=== PATIENT | male | born 1940 | race Caucasian/White ===

== ENCOUNTER 2016-11-09 08:15 | Outpatient (RCR) ==
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
--- NOTE | 2016-10-13 09:35 | RS.OPPTDN ---
Subjective Date of Note: 10/13/16 Visit #: 2 Date of Evaluation: 10/12/16 Payer Source: MEDICARE Treatment Diagnosis: Neck pain and weakness Current Subjective/complaints:: Patient reports feeling fairly good this morning. Reports some fatigue following exercise today. *Precautions: No lifting > 5 lbs Pain Assessment - Pain Description Pain Location: Entire spine Pain Description: Aching, Acute, Chronic Pain Description: Aching increases in the day and relieved by rest. Current Pain Intensity: 10/20 Interventions - Exercise/Activities/Manual Therapy Exercises/Activities: [id number] with therapeutic breaks for rest and instruction. Mat exercises in hook-lying of isometric hip add, alt hip flexion with 3#, SAQ 3 #, 2s/10reps each side. Also, red theraband ham curls, UE diagonals 2 directions , and bilateral shoulder ER, 2s/10reps each. Began isometric cervical retraction and lateral flexion all in neutral, multiple reps. Reviewed isometrics for abdoninals, safety, dx, and HEP. Patient and given copies of HEP and red theraband. Ended with assisting patient onto stationary bike x4mins slow pace. Total minutes of Exercise: 45mins Manual Therapy: NA HOME EXERCISE PROGRAM: Continue HEP. Added isometric hip add, hook-lying LE lifts/hip flexion, red theraband for bilateral shoulder ER and UE diagonals 2 directions. - Charges Total Direct Minutes: 45mins Total Treatment Time: 45mins Procedures billed for this date of service:: EX3 Assessment: Patient able to work on all core strengthening exercises. Patient shoulder benefit from isometrics then progressing to dynamic strengthening exercises. Patient Education: Body/Joint mechanics, Home Exercise Program, Home Safety, Activity Modification Patient demonstrates compliance with HEP?: Yes Short Term Goals Goal #1: Patient is free of cervical collar 4 hrs / day. Goal to be met by: 10/30/16 Progress towards Goal:: Progressing Goal #2: Right UE strength 4+/5 throughout Goal to be met by: 10/30/16 Goal #3: CROM WFLs in all planes w/o increased pain. Goal to be met by: 10/30/16 Goal #4: Independent with beginning HEP Goal to be met by: 10/30/16 Progress towards Goal:: Progressing Manufacturing Area Manager Goals Goal #1: BUE strength 5/5 Goal to be met by: 11/20/16 Goal #2: Patient is free of cervical collar use. Goal to be met by: 11/20/16 Goal #3: Only minimal discomfort by end of day from normal activities. Goal to be met by: 11/20/16 Goal #4: Independent with HEP for DC. Goal to be met by: 11/20/16 Plan PLAN OF CARE EXPIRES ON:: 11/20/16 ORDER # VISITS AND/OR THROUGH DATE: 11/20/2016 PLAN: Continue Plan of Care (Progress stability and strengthening exercises to increase patients functional activity level.)
--- NOTE | 2016-10-15 10:38 | RS.OPPTDN ---
Subjective Date of Note: 10/15/16 Visit #: 3 Date of Evaluation: 10/12/16 Payer Source: MEDICARE Treatment Diagnosis: Neck pain and weakness Current Subjective/complaints:: Patient reports fatigue after last treatment session. *Precautions: No lifting > 5 lbs Pain Assessment - Pain Description Pain Location: Entire spine Pain Description: Aching, Acute, Chronic Pain Description: Aching increases in the day and relieved by rest. Current Pain Intensity: 1/10 Interventions - Exercise/Activities/Manual Therapy Exercises/Activities: [id number]. Assisted stretching of bilateral hamstrings and SKTC. Mat exercises in hook-lying of isometric hip add, alt hip flexion with 3# , SAQ 3#, 2s/10reps each side. 3# wand for chest press and overhead flexion, 20reps each. Red theraband for ham curls, UE diagonals 2 directions, and bilateral shoulder ER, 2s/10reps each. Bridging, 5reps. SLR and Hip abd with assist, 4s/5reps each, bilaterally. Red theraband in sitting and standing for scapular retraction. Stationary bike alt forward and retro x5mins slow pace(not included in direct time). Total minutes of Exercise: 45mins direct Manual Therapy: NA HOME EXERCISE PROGRAM: Continue HEP. Added isometric hip add, hook-lying LE lifts/hip flexion, red theraband for bilateral shoulder ER and UE diagonals 2 directions. - Charges Total Direct Minutes: 45mins Total Treatment Time: 50mins Procedures billed for this date of service:: EX3 Assessment: Patient repording well and progressing with exercise. Patient Education: Body/Joint mechanics, Home Exercise Program, Home Safety Patient demonstrates compliance with HEP?: Yes Short Term Goals Goal #1: Patient is free of cervical collar 4 hrs / day. Goal to be met by: 10/30/16 Progress towards Goal:: Progressing Goal #2: Right UE strength 4+/5 throughout Goal to be met by: 10/30/16 Goal #3: CROM WFLs in all planes w/o increased pain. Goal to be met by: 10/30/16 Progress towards Goal:: Progressing Goal #4: Independent with beginning HEP Goal to be met by: 10/30/16 (50%) Progress towards Goal:: Progressing Intermediate Goals Goal #1: BUE strength 5/5 Goal to be met by: 11/20/16 Goal #2: Patient is free of cervical collar use. Goal to be met by: 11/20/16 Goal #3: Only minimal discomfort by end of day from normal activities. Goal to be met by: 11/20/16 Goal #4: Independent with HEP for DC. Goal to be met by: 11/20/16 Plan PLAN OF CARE EXPIRES ON:: 11/20/16 ORDER # VISITS AND/OR THROUGH DATE: 11/20/2016 PLAN: Continue Plan of Care (Continue progressive strengthening and ROM exercise to increase patients functional activity level.)
--- NOTE | 2016-10-19 12:10 | RS.OPPTDN ---
Subjective Date of Note: 10/19/16 Visit #: 4 Date of Evaluation: 10/12/16 Payer Source: MEDICARE Treatment Diagnosis: Neck pain and weakness Current Subjective/complaints:: Reports doing well this morning. States he usually feels his best in the morning and gets sore and a little tired as the day goes on. States the right shoulder has some discomfort when he performs the UE diagonal movements with the theraband. *Precautions: No lifting > 5 lbs Pain Assessment - Pain Description Pain Location: Entire spine Pain Description: Aching, Acute, Chronic Current Pain Intensity: 1/10 Interventions - Exercise/Activities/Manual Therapy Exercises/Activities: x47 mins. Assisted stretching of bilateral hamstrings and SKTC. Mat exercises in hook-lying of isometric hip add, alt hip flexion with 3# , SAQ 3#, 2s/10reps each side. 3# wand for chest press and overhead flexion, 20reps each. Red theraband for ham curls, UE diagonals 2 directions, and bilateral shoulder ER, 2s/10reps each. Bridging, 5reps. SLR , trunk rotation isometrics,and Hip abd with assist, 4s/5reps each, bilaterally. Red theraband in sitting and standing for scapular retraction. Sitting bilateral shoulder flexion holding ball from waist height to shoulder height X 8 reps. Stationary bike alt forward and retro x5mins slow pace(not included in direct time). Manual Therapy: NA HOME EXERCISE PROGRAM: Continue HEP. Added isometric hip add, hook-lying LE lifts/hip flexion, red theraband for bilateral shoulder ER and UE diagonals 2 directions. - Charges Total Direct Minutes: 42 mins Total Treatment Time: 47 mins Procedures billed for this date of service:: EX3 Assessment: Patient is able to perform all exercises without difficulty. He does report feeling some discomfort in the right shoulder with UE diagonals and shoulder flexion in sitting with the ball. He demonstrates the need for further strengthening to return him to his previous level of function. Patient Education: Education of diagnosis, Body/Joint mechanics, Home Exercise Program, Home Safety, Activity Modification Patient demonstrates compliance with HEP?: Yes Short Term Goals Goal #1: Patient is free of cervical collar 4 hrs / day. Goal to be met by: 10/30/16 Progress towards Goal:: Progressing Goal #2: Right UE strength 4+/5 throughout Goal to be met by: 10/30/16 Goal #3: CROM WFLs in all planes w/o increased pain. Goal to be met by: 10/30/16 Progress towards Goal:: Progressing Goal #4: Independent with beginning HEP Goal to be met by: 10/30/16 (50%) Progress towards Goal:: Progressing Nursing Home Goals Goal #1: BUE strength 5/5 Goal to be met by: 11/20/16 Goal #2: Patient is free of cervical collar use. Goal to be met by: 11/20/16 Goal #3: Only minimal discomfort by end of day from normal activities. Goal to be met by: 11/20/16 Goal #4: Independent with HEP for DC. Goal to be met by: 11/20/16 Plan PLAN OF CARE EXPIRES ON:: 11/20/16 ORDER # VISITS AND/OR THROUGH DATE: 11/20/2016 PLAN: Continue Plan of Care
--- NOTE | 2016-10-21 09:52 | RS.OPPTDN ---
Subjective Date of Note: 10/21/16 Visit #: 5 Date of Evaluation: 10/12/16 Payer Source: MEDICARE Treatment Diagnosis: Neck pain and weakness Current Subjective/complaints:: Patient reports some muscle soreness as he increases strengthening exercise and functional activities at home. States he is doing more light to moderate [place], but continues to be very cautious. *Precautions: No lifting > 5 lbs Pain Assessment - Pain Description Pain Location: Entire spine Pain Description: Aching, Acute, Chronic Pain Description: Aching increases in the day and relieved by rest. Current Pain Intensity: 10/20 Interventions - Exercise/Activities/Manual Therapy Exercises/Activities: [id number]. Assisted stretching of bilateral hamstrings, SKTC , and gentle trunk rotation. PROM to the right shoulder all directions. Mat exercises in hook-lying of isometric hip add, alt hip flexion with 3#, SAQ 3#, 2s/10reps each side. Began 1# wand for overhead flexion with alt hip flexion 3# to each LE, 2s/10reps. Red theraband for ham curls, ankle df, hip abd in hook- lying, and bilateral shoulder ER, 2s/10reps each. SLR and hip abd with assist, 10reps each. In standing at wall, bilateral shoulder flexion with 1# wand 2s/ 5reps and diagonal/scaption with ball from waist height to shoulder height 5reps each. Began elliptical machine, slow pace, 2s/1mins. Stationary bike alt forward and retro x5mins slow pace(not included in direct time). Total minutes of Exercise: 45mins direct, 50mins total Manual Therapy: NA HOME EXERCISE PROGRAM: Continue HEP. Added isometric hip add, hook-lying LE lifts/hip flexion, red theraband for bilateral shoulder ER and UE diagonals 2 directions. - Charges Total Direct Minutes: 45mins Total Treatment Time: 50mins Procedures billed for this date of service:: EX3 Assessment: Patient progressing with strengthening exercise in department and with functional activities at home. Patient Education: Home Exercise Program, Home Safety, Activity Modification Patient demonstrates compliance with HEP?: Yes Short Term Goals Goal #1: Patient is free of cervical collar 4 hrs / day. Goal to be met by: 10/30/16 (50%) Progress towards Goal:: Progressing Goal #2: Right UE strength 4+/5 throughout Goal to be met by: 10/30/16 Goal #3: CROM WFLs in all planes w/o increased pain. Goal to be met by: 10/30/16 Progress towards Goal:: Progressing Goal #4: Independent with beginning HEP Goal to be met by: 10/30/16 (50%) Progress towards Goal:: Progressing Shelter Goals Goal #1: BUE strength 5/5 Goal to be met by: 11/20/16 Goal #2: Patient is free of cervical collar use. Goal to be met by: 11/20/16 Goal #3: Only minimal discomfort by end of day from normal activities. Goal to be met by: 11/20/16 Progress towards goal: Progressing Goal #4: Independent with HEP for DC. Goal to be met by: 11/20/16 Plan PLAN OF CARE EXPIRES ON:: 11/20/16 ORDER # VISITS AND/OR THROUGH DATE: 11/20/2016 PLAN: Continue Plan of Care (Continue to progress exercise to incresae strength and ability to perform functional activities.)
--- NOTE | 2016-10-23 13:13 | RS.OPPTDN ---
Subjective Date of Note: 10/23/16 Visit #: 6 Date of Evaluation: 10/12/16 Payer Source: MEDICARE Treatment Diagnosis: Neck pain and weakness Current Subjective/complaints:: Patient reports right shoulder continues to be sore and ROM is limited due to discomfort, but feels he is progressing overall. *Precautions: No lifting > 5 lbs Pain Assessment - Pain Description Pain Location: Entire spine Pain Description: Aching, Acute, Chronic Pain Description: Aching increases in the day and relieved by rest. Current Pain Intensity: 10/20 Interventions - Exercise/Activities/Manual Therapy Exercises/Activities: [id number]. Assisted stretching of bilateral hamstrings, SKTC , and gentle trunk rotation. PROM to the right shoulder all directions. Mat exercises in hook-lying of isometric hip add, alt hip flexion increased to 4#, SAQ 4#, 2s/10reps each side. 1# wand for overhead flexion with alt hip flexion 4# to each LE, 2s/10reps. Increased to green theraband for ham curls, ankle df, hip abd in hook-lying. Red theraband for bilateral shoulder flexion, extension, and bilateral shoulder ER, 10reps each. SLR and hip abd with assist, 10reps each. Isometric hip abduction and trunk rotation. In standing at wall, bilateral shoulder flexion with 1# wand 2s/10reps and overhead chest press. Elliptical machine, slow pace, increased to 3s/1mins. Began multi-gym station for scap retraction 20# 20reps and single UE forward press 10# 2s/10reps each. Stationary bike alt forward and retro x5mins slow pace(not included in direct time). Total minutes of Exercise: 45mins/50mins Manual Therapy: NA HOME EXERCISE PROGRAM: Continue HEP. Added isometric hip add, hook-lying LE lifts/hip flexion, red theraband for bilateral shoulder ER and UE diagonals 2 directions. - Charges Total Direct Minutes: 45mins Total Treatment Time: 50mins Procedures billed for this date of service:: EX3 Assessment: Patient progressing with strengthening. Patient Education: Home Exercise Program, Home Safety, Activity Modification Patient demonstrates compliance with HEP?: Yes Short Term Goals Goal #1: Patient is free of cervical collar 4 hrs / day. Goal to be met by: 10/30/16 (100%) Progress towards Goal:: Met Goal #2: Right UE strength 4+/5 throughout Goal to be met by: 10/30/16 Goal #3: CROM WFLs in all planes w/o increased pain. Goal to be met by: 10/30/16 Progress towards Goal:: Progressing Goal #4: Independent with beginning HEP Goal to be met by: 10/30/16 (100%) Progress towards Goal:: Met Skilled Nursing Goals Goal #1: BUE strength 5/5 Goal to be met by: 11/20/16 Goal #2: Patient is free of cervical collar use. Goal to be met by: 11/20/16 Goal #3: Only minimal discomfort by end of day from normal activities. Goal to be met by: 11/20/16 Progress towards goal: Progressing Goal #4: Independent with HEP for DC. Goal to be met by: 11/20/16 Plan PLAN OF CARE EXPIRES ON:: 11/20/16 ORDER # VISITS AND/OR THROUGH DATE: 11/20/2016 PLAN: Continue Plan of Care
--- NOTE | 2016-10-26 10:03 | RS.OPPTDN ---
Subjective Date of Note: 10/26/16 Visit #: 7 Date of Evaluation: 10/12/16 Payer Source: MEDICARE Treatment Diagnosis: Neck pain and weakness Current Subjective/complaints:: Patient and report patient is doing more at home. Continues to report right shoulder pain with reaching at or above shoulder height. Following discussion, patient and agree to call physicians office and report symptoms. *Precautions: No lifting > 5 lbs Pain Assessment - Pain Description Pain Location: Entire spine Pain Description: Aching, Acute, Chronic Pain Description: Aching increases in the day and relieved by rest. Current Pain Intensity: 10/20 Interventions - Exercise/Activities/Manual Therapy Exercises/Activities: [id number]. Assisted stretching of bilateral hamstrings, SKTC , and gentle trunk rotation. PROM to the right shoulder all directions. Mat exercises in hook-lying of isometric hip add, alt hip flexion 4#, SAQ 4#, 2s/ 10reps each side. 1# wand for overhead flexion with alt hip flexion 4# to each LE, 2s/10reps. Increased to green theraband for ham curls, ankle df, hip abd in hook-lying. Red theraband for bilateral shoulder flexion, extension, and bilateral shoulder ER, 10reps each. SLR 2s/10reps. Isometric hip abduction and trunk rotation. In standing at wall, bilateral shoulder flexion with 1# wand, ball on the wall with each UE separately. Began leg press 30#, 3s/10reps. Elliptical machine, slow pace, increased to 3s/1mins. Multi-gym station for scap retraction 20# 20reps and single UE forward press 10# 2s/10reps each. Stationary bike alt forward and retro x5mins slow pace(not included in direct time). Ended with wall slides with large therapy ball, 2s/10reps and toe-ups 15reps. Total minutes of Exercise: 42mins direct Manual Therapy: NA HOME EXERCISE PROGRAM: Continue HEP. Added isometric hip add, hook-lying LE lifts/hip flexion, red theraband for bilateral shoulder ER and UE diagonals 2 directions. - Charges Total Direct Minutes: 42mins Total Treatment Time: 47mins Procedures billed for this date of service:: EX3 Assessment: Patient progressing well with strengthening exercise. Patient Education: Body/Joint mechanics, Home Exercise Program, Home Safety, Activity Modification Comments: Reviewed safety precautions with strengthening. Patient demonstrates compliance with HEP?: Yes Short Term Goals Goal #1: Patient is free of cervical collar 4 hrs / day. Goal to be met by: 10/30/16 (100%) Progress towards Goal:: Met Goal #2: Right UE strength 4+/5 throughout Goal to be met by: 10/30/16 Goal #3: CROM WFLs in all planes w/o increased pain. Goal to be met by: 10/30/16 Progress towards Goal:: Progressing Goal #4: Independent with beginning HEP Goal to be met by: 10/30/16 (100%) Progress towards Goal:: Met Halfway Goals Goal #1: BUE strength 5/5 Goal to be met by: 11/20/16 Goal #2: Patient is free of cervical collar use. Goal to be met by: 11/20/16 Goal #3: Only minimal discomfort by end of day from normal activities. Goal to be met by: 11/20/16 Progress towards goal: Progressing Goal #4: Independent with HEP for DC. Goal to be met by: 11/20/16 Plan PLAN OF CARE EXPIRES ON:: 11/20/16 ORDER # VISITS AND/OR THROUGH DATE: 11/20/2016 PLAN: Continue Plan of Care
--- NOTE | 2016-10-28 13:02 | RS.OPPTDN ---
Subjective Date of Note: 10/28/16 Visit #: 8 Date of Evaluation: 10/12/16 Payer Source: MEDICARE Treatment Diagnosis: Neck pain and weakness Current Subjective/complaints:: Patient reports he continues to have fatigue at the end of the day, but his strength is increasing each day. *Precautions: No lifting > 5 lbs Pain Assessment - Pain Description Pain Location: Entire spine Pain Description: Aching, Acute, Chronic Pain Description: Aching increases in the day and relieved by rest. Current Pain Intensity: /10 Interventions - Exercise/Activities/Manual Therapy Exercises/Activities: [id number]. Assisted stretching of bilateral hamstrings, SKTC , and gentle trunk rotation. PROM to the right shoulder all directions. Mat exercises in hook-lying of isometric hip add, alt hip flexion 4#, SAQ 4#, 2s/ 10reps each side. 3# ball for short trunk rotation, 3s/5reps each. Increased to 3# wand for overhead flexion with alt hip flexion 4# to each LE, 2s/10reps. Green theraband for ham curls, ankle df, hip abd in hook-lying. Red theraband for bilateral shoulder ER, 2s/10reps each. SLR added 1#, 2s/10reps. Isometric hip abduction and trunk rotation. In standing at wall, bilateral shoulder flexion increased to 3# wand, ball on the wall with each UE separately. Elliptical machine, slow pace, increased to 3s/1mins. Multi-gym station for scap retraction 20# 2s/10reps and single UE forward press 5# 2s/10reps each. Ball on the wall for shoulder flexion overhead. Wall push ups. Stationary bike alt forward and retro x5mins slow pace(not included in direct time). Ended with wall slides with large therapy ball, 2s/10reps and toe-ups 15reps. Total minutes of Exercise: 45mis direct Manual Therapy: NA HOME EXERCISE PROGRAM: Continue HEP. Added isometric hip add, hook-lying LE lifts/hip flexion, red theraband for bilateral shoulder ER and UE diagonals 2 directions. - Charges Total Direct Minutes: 45mins Total Treatment Time: 50mins Procedures billed for this date of service:: EX3 Assessment: Patient progressing with strengthening and with daily activities at home. Patient Education: Body/Joint mechanics, Home Exercise Program, Home Safety, Activity Modification Patient demonstrates compliance with HEP?: Yes Short Term Goals Goal #1: Patient is free of cervical collar 4 hrs / day. Goal to be met by: 10/30/16 (100%) Progress towards Goal:: Met Goal #2: Right UE strength 4+/5 throughout Goal to be met by: 10/30/16 Goal to be met by: 10/30/16 Progress towards Goal:: Progressing Goal #4: Independent with beginning HEP Goal to be met by: 10/30/16 (100%) Progress towards Goal:: Met Director Presales Goals Goal #1: BUE strength 5/5 Goal to be met by: 11/20/16 Goal #2: Patient is free of cervical collar use. Goal to be met by: 11/20/16 Progress towards goal: Progressing Goal #3: Only minimal discomfort by end of day from normal activities. Goal to be met by: 11/20/16 Progress towards goal: Progressing Goal #4: Independent with HEP for DC. Goal to be met by: 11/20/16 Progress towards goal: Progressing Plan PLAN OF CARE EXPIRES ON:: 11/20/16 ORDER # VISITS AND/OR THROUGH DATE: 11/20/2016 PLAN: Continue Plan of Care
--- NOTE | 2016-10-30 13:26 | RS.OPPTDN ---
Subjective Date of Note: 10/30/16 Visit #: 9 Date of Evaluation: 10/12/16 Payer Source: MEDICARE Treatment Diagnosis: Neck pain and weakness Current Subjective/complaints:: Patient reports consistent improvement in strength and with ability to perform light daily activities at home. He continues to have right shoulder pain and weakness. states they have an appointment with an Orthopaedic physician on Wednesday. *Precautions: No lifting > 5 lbs Pain Assessment - Pain Description Pain Location: Entire spine Pain Description: Aching, Acute, Chronic Pain Description: Aching increases in the day and relieved by rest. Current Pain Intensity: 10/20 Interventions - Exercise/Activities/Manual Therapy Exercises/Activities: [id number]. Assisted stretching of bilateral hamstrings, SKTC , and gentle trunk rotation. PROM to the right shoulder all directions. Mat exercises in hook-lying of isometric hip add, alt hip flexion 4#, SAQ 4#, 2s/ 10reps each side. 3# wand for overhead flexion with alt hip flexion 4# to each LE, 2s/10reps. Green theraband for ham curls, ankle df, hip abd in hook-lying. Red theraband for bilateral shoulder diagonals 2s/10reps each. SLR 2s/10reps. Isometric hip abduction and trunk rotation. In standing at wall, ball on the wall with large therapy ball. Elliptical machine, slow pace, increased to 2s/ 2mins. Multi-gym station for scap retraction 20# 2s/10reps and single UE forward press 5# 2s/10reps each. Leg press 30# 3s/10reps and toe-offs 15# 2s/ 10reps. Stationary bike alt forward and retro x5mins slow pace(not included in direct time). Total minutes of Exercise: 45mins Manual Therapy: NA HOME EXERCISE PROGRAM: Continue HEP. Added isometric hip add, hook-lying LE lifts/hip flexion, red theraband for bilateral shoulder ER and UE diagonals 2 directions. - Charges Total Direct Minutes: 45mins Total Treatment Time: 45mins Procedures billed for this date of service:: EX3 Assessment: Patient progressing with strengthening exercise. Patient Education: Home Exercise Program Patient demonstrates compliance with HEP?: Yes Short Term Goals Goal #1: Patient is free of cervical collar 4 hrs / day. Goal to be met by: 10/30/16 (100%) Progress towards Goal:: Met Goal #2: Right UE strength 4+/5 throughout Goal to be met by: 10/30/16 Goal to be met by: 10/30/16 Progress towards Goal:: Progressing Goal #4: Independent with beginning HEP Goal to be met by: 10/30/16 (100%) Progress towards Goal:: Met Waste Chopper Goals Goal #1: BUE strength 5/5 Goal to be met by: 11/20/16 Goal #2: Patient is free of cervical collar use. Goal to be met by: 11/20/16 Progress towards goal: Progressing Goal #3: Only minimal discomfort by end of day from normal activities. Goal to be met by: 11/20/16 Progress towards goal: Progressing Goal #4: Independent with HEP for DC. Goal to be met by: 11/20/16 Progress towards goal: Progressing Plan PLAN OF CARE EXPIRES ON:: 11/30/16 ORDER # VISITS AND/OR THROUGH DATE: 11/20/2016 PLAN: Continue Plan of Care
--- NOTE | 2016-11-02 11:31 | RS.OPPTDN ---
Subjective Date of Note: 11/02/16 Visit #: 10 Date of Evaluation: 10/12/16 Payer Source: MEDICARE Treatment Diagnosis: Neck pain and weakness Current Subjective/complaints:: Patient reports continued progress. He continues to have fatigue at end of the day, but is doing more light daily activities at home. *Precautions: No lifting > 5 lbs Pain Assessment - Pain Description Pain Location: Entire spine Pain Description: Aching, Acute, Chronic Pain Description: Aching increases in the day and relieved by rest. Current Pain Intensity: /10 Interventions - Exercise/Activities/Manual Therapy Exercises/Activities: [id number]. Assisted stretching of bilateral hamstrings, SKTC , and gentle trunk rotation. PROM to the right shoulder all directions. Mat exercises in hook-lying of isometric hip add, alt hip flexion 4#, SAQ 4#, 2s/ 10reps each side. 3# wand for overhead flexion with alt hip flexion 4# to each LE, 2s/10reps. Green theraband for hip abd in hook-lying. Green theraband for bilateral shoulder diagonals 2s/10reps each. SLR added 1# 2s/10reps. Isometric hip abduction and trunk rotation. Elliptical machine, slow pace, increased to 2s /2mins. Multi-gym station for scap retraction 20# 2s/10reps and single UE forward press 5# 2s/10reps each. Wall slides with large ball mini-sqauts 2s/ 10reps and toe-offs 2s/10reps. Leg press 30# 3s/10reps and toe-offs 30# 2s/ 10reps. Stationary bike alt forward and retro x6mins slow pace(not included in direct time). Total minutes of Exercise: 40mins Manual Therapy: NA HOME EXERCISE PROGRAM: Continue HEP. Added isometric hip add, hook-lying LE lifts/hip flexion, red theraband for bilateral shoulder ER and UE diagonals 2 directions. - Objective Findings Observations,measurements,etc.: Patients FOM score improved to 14/50 or 28% deficit. Was 15/50 or 30% on Evaluation, but Driving category was not scored. Patient was not driving at the time and is driving short distances now. - Charges Total Direct Minutes: 40mins Total Treatment Time: 45mins Procedures billed for this date of service:: EX3 Assessment: Patient progressing well with strentgthening. Patient Education: Home Exercise Program, Activity Modification Patient demonstrates compliance with HEP?: Yes Short Term Goals Goal #1: Patient is free of cervical collar 4 hrs / day. Goal to be met by: 10/30/16 (100%) Progress towards Goal:: Met Goal #2: Right UE strength 4+/5 throughout Goal to be met by: 10/30/16 Progress towards Goal:: Progressing Goal #3: CROM WFLs in all planes w/o increased pain. Goal to be met by: 10/30/16 Progress towards Goal:: Progressing Goal #4: Independent with beginning HEP Goal to be met by: 10/30/16 (100%) Progress towards Goal:: Met Automation Qa Tester Goals Goal #1: BUE strength 5/5 Goal to be met by: 11/20/16 Goal #2: Patient is free of cervical collar use. Goal to be met by: 11/20/16 Progress towards goal: Progressing Goal #3: Only minimal discomfort by end of day from normal activities. Goal to be met by: 11/20/16 Progress towards goal: Progressing Goal #4: Independent with HEP for DC. Goal to be met by: 11/20/16 Progress towards goal: Progressing Plan PLAN OF CARE EXPIRES ON:: 11/20/16 ORDER # VISITS AND/OR THROUGH DATE: 11/20/2016 PLAN: Continue Plan of Care Comments:: Continue strengthening to increase patients functional activity level.
--- NOTE | 2016-11-03 09:29 | RS.PTSUM ---
Progress Note/Summary Date of Note: 11/03/16 Date of Evaluation: 10/12/16 Number of Visits: 10 Reporting Period for this Progress Note: 10/12/16 through 11/02/16 Current Complaints/Gains: Patient reports increased light activities at home. States he only wears the cervical collar while driving. He is driving short distances. Feels his neck motion is good enough to drive short distances, but not long distances. 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 Objective Measurements/Presentation: Cervical AROM is WFL's. Right shoulder strength 4 to 4+/5 below shoulder height. Patient performs various extremity and core strengthening exercises with good tolerance as they have been progressed. He has reported right shoulder pain with many activities. G Codes: Carry current CJ. Carry goal CI Source of G Code Score: Neck disability index score of 14/50=28% impairment. - Short Term Goals Goal #1: Patient is free of cervical collar 4 hrs / day. Goal to be met by: 10/30/16 (100%) Progress towards Goal:: Met Goal #2: Right UE strength 4+/5 throughout Goal to be met by: 10/30/16 Progress towards Goal:: Progressing Goal #3: CROM WFLs in all planes w/o increased pain. Goal to be met by: 10/30/16 Progress towards Goal:: Progressing Goal #4: Independent with beginning HEP Goal to be met by: 10/30/16 (100%) Progress towards Goal:: Met - Long-Term Goals Goal #1: BUE strength 5/5 Goal to be met by: 11/20/16 Progress towards goal: Progressing Goal #2: Patient is free of cervical collar use. Goal to be met by: 11/20/16 Progress towards goal: Progressing Goal #3: Only minimal discomfort by end of day from normal activities. Goal to be met by: 11/20/16 Progress towards goal: Progressing Goal #4: Independent with HEP for DC. Goal to be met by: 11/20/16 Progress towards goal: Progressing - Assessment Assessment of Improvement/Progress: Mr. Mendoza shows improved cervical ROM and UE strength below shoulder height. He continues to be limited with reaching above shoulder height. He is only able to perform light ADL's/activities at home. 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 He will benefit from continue strengthening to gain further independence and ability. Summary: Patient has made progress towards goals., Maximum potential has yet to be attained. - Plan Plan: Continue Plan of Care PLAN OF CARE EXPIRES ON:: 11/20/16 ORDER # VISITS AND/OR THROUGH DATE: 11/20/2016
--- NOTE | 2016-11-04 12:04 | RS.OPPTDN ---
Subjective Date of Note: 11/04/16 Visit #: 11 Date of Evaluation: 10/12/16 Payer Source: MEDICARE Treatment Diagnosis: Neck pain and weakness Current Subjective/complaints:: Patient reports he is doing more activities at home. States he saw orthopedic physician's general office assistant. 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 Patient advised we will continue on current orders for strengthening which includes scapular strengthening. Patient in agreement. *Precautions: No lifting > 5 lbs Pain Assessment - Pain Description Pain Location: Entire spine Pain Description: Aching, Acute, Chronic Pain Description: Aching increases in the day and relieved by rest. Current Pain Intensity: mild Interventions - Exercise/Activities/Manual Therapy Exercises/Activities: [id number]. Assisted stretching of bilateral hamstrings, SKTC , and gentle trunk rotation. PROM to the right shoulder all directions. Mat exercises in hook-lying of isometric hip add, alt hip flexion 4#, SAQ 4#, 2s/ 10reps each side. 3# wand for overhead flexion with alt hip flexion 4# to each LE, 2s/10reps. Green theraband for hip abd in hook-lying. Green theraband for bilateral shoulder diagonals 2s/10reps each. SLR 1# 2s/10reps. Isometric hip abduction and trunk rotation with 8# ball. Elliptical machine, slow pace, 2s/ 2mins. Multi-gym station for scap retraction 20# 2s/10reps and single UE forward press 5# 2s/10reps each. Began hip extension cable pulleys 5#, 2s/ 10reps each. Leg press 45# 3s/10reps and toe-offs 45# 2s/10reps. Wall push ups. Blue theraband for serratus punch, 3s/10reps. Stationary bike alt forward and retro x6mins slow pace(not included in direct time). Total minutes of Exercise: 44mins Manual Therapy: NA HOME EXERCISE PROGRAM: Continue HEP. Added isometric hip add, hook-lying LE lifts/hip flexion, red theraband for bilateral shoulder ER and UE diagonals 2 directions. - Charges Total Direct Minutes: 44mins Total Treatment Time: 50mins Procedures billed for this date of service:: EX3 Assessment: Patient progressing well. Will progress scapular stability exercises. Patient Education: Education of diagnosis, Body/Joint mechanics, Home Exercise Program, Activity Modification Patient demonstrates compliance with HEP?: Yes Short Term Goals Goal #1: Patient is free of cervical collar 4 hrs / day. Goal to be met by: 10/30/16 (100%) Progress towards Goal:: Met Goal #2: Right UE strength 4+/5 throughout Goal to be met by: 10/30/16 Progress towards Goal:: Progressing Goal #3: CROM WFLs in all planes w/o increased pain. Goal to be met by: 10/30/16 Progress towards Goal:: Progressing Goal #4: Independent with beginning HEP Goal to be met by: 10/30/16 (100%) Progress towards Goal:: Met Rail Washer Goals Goal #1: BUE strength 5/5 Goal to be met by: 11/20/16 Progress towards goal: Progressing Goal #2: Patient is free of cervical collar use. Goal to be met by: 11/20/16 (75%) Progress towards goal: Progressing Comments: Only wears when riding in vehicle or driving. Goal #3: Only minimal discomfort by end of day from normal activities. Goal to be met by: 11/20/16 (50%) Progress towards goal: Progressing Goal #4: Independent with HEP for DC. Goal to be met by: 11/20/16 Progress towards goal: Progressing Plan PLAN OF CARE EXPIRES ON:: 11/20/16 ORDER # VISITS AND/OR THROUGH DATE: 11/20/2016 PLAN: Continue Plan of Care
--- NOTE | 2016-11-06 10:12 | RS.OPPTDN ---
Subjective Date of Note: 11/06/16 Visit #: 12 Date of Evaluation: 10/12/16 Payer Source: MEDICARE Treatment Diagnosis: Neck pain and weakness Current Subjective/complaints:: Patient reports he is pleased with his progress. 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 Reports noticing significant improvement each week. *Precautions: No lifting > 5 lbs Pain Assessment - Pain Description Pain Location: Entire spine Pain Description: Aching, Acute, Chronic Pain Description: Aching increases in the day and relieved by rest. Current Pain Intensity: mild Other Comments regarding Pain:: Reports discomfort in the afternoon. Interventions - Exercise/Activities/Manual Therapy Exercises/Activities: [id number]. Assisted stretching of bilateral hamstrings, SKTC , and gentle trunk rotation. PROM to the right shoulder all directions. Mat exercises in hook-lying of isometric hip add, alt hip flexion 4#, 2s/10reps each side. 3# wand for overhead flexion with alt hip flexion 4# to each LE, 2s/ 10reps. Red theraband for hip abd and add with knee in full extension, 2s/ 10reps each. SLR increaseda to 2# 2s/10reps. Isometric hip abduction and trunk rotation with 8# ball. Upper trunk rotation whild holding 6# ball. Elliptical machine, slow pace, increased to 2s/2 1/2mins. Multi-gym station for scap retraction 20# 2s/10reps and single UE forward press 5# 2s/10reps each side. Serratus punch on right 5#, 2s/10reps. Red theraband for overhead press 3s/ 10reps each. Wall push ups. Stationary bike alt forward and retro x6mins slow pace(not included in direct time). Total minutes of Exercise: 50mins direct Manual Therapy: NA HOME EXERCISE PROGRAM: Continue HEP. Added isometric hip add, hook-lying LE lifts/hip flexion, red theraband for bilateral shoulder ER and UE diagonals 2 directions. - Charges Total Direct Minutes: 50mins Total Treatment Time: 56mins Procedures billed for this date of service:: EX3 Assessment: Patient continues to progress with strengthening exercise. He consistently report imprvement in ability with light daily activities. Patient Education: Body/Joint mechanics, Home Exercise Program, Home Safety Comments: Reviewed dx, mechanics, and additions to HEP for strengthening of right winged scapula. Patient demonstrates compliance with HEP?: Yes Short Term Goals Goal #1: Patient is free of cervical collar 4 hrs / day. Goal to be met by: 10/30/16 (100%) Progress towards Goal:: Met Goal #2: Right UE strength 4+/5 throughout Goal to be met by: 10/30/16 Progress towards Goal:: Progressing Goal #3: CROM WFLs in all planes w/o increased pain. Goal to be met by: 10/30/16 Progress towards Goal:: Progressing Goal #4: Independent with beginning HEP Goal to be met by: 10/30/16 (100%) Progress towards Goal:: Met Retirement Goals Goal #1: BUE strength 5/5 Goal to be met by: 11/20/16 Progress towards goal: Progressing Goal #2: Patient is free of cervical collar use. Goal to be met by: 11/20/16 (80%) Progress towards goal: Progressing Goal #3: Only minimal discomfort by end of day from normal activities. Goal to be met by: 11/20/16 (60%) Progress towards goal: Progressing Goal #4: Independent with HEP for DC. Goal to be met by: 11/20/16 Progress towards goal: Progressing Plan PLAN OF CARE EXPIRES ON:: 11/20/16 ORDER # VISITS AND/OR THROUGH DATE: 11/20/2016 PLAN: Continue Plan of Care (Continue and progress strengthening exercise to return patient to PLOF.)
--- NOTE | 2016-11-09 11:22 | RS.OPPTDN ---
Subjective Date of Note: 11/09/16 Visit #: 13 Date of Evaluation: 10/12/16 Payer Source: MEDICARE Treatment Diagnosis: Neck pain and weakness Current Subjective/complaints:: Patient again states he is pleased with his progress. States he is tired in the afternoon, but continues to progress with light daily activities. *Precautions: No lifting > 5 lbs Pain Assessment - Pain Description Pain Location: Entire spine Pain Description: Aching, Acute, Chronic Pain Description: Aching increases in the day and relieved by rest. Current Pain Intensity: mild Interventions - Exercise/Activities/Manual Therapy Exercises/Activities: [id number]. Assisted stretching of bilateral hamstrings, SKTC , and gentle trunk rotation. PROM to the right shoulder all directions. Mat exercises in hook-lying of isometric hip add, alt hip flexion 4#, 2s/10reps each side. 4# wand for overhead flexion with alt hip flexion 2# to each LE, 2s/ 10reps. Red theraband for hip abd and add with knee in full extension, 2s/ 10reps each. SLR 2# 2s/10reps. Isometric hip abduction and trunk rotation with 8# ball. Elliptical machine, slow pace, 2s/2 1/2mins. Multi-gym station for scap retraction 20# 3s/10reps and single UE forward press 5# 2s/10reps each side. Serratus punch on right 5#, 2s/10reps. Red theraband for overhead press 3s /10reps on right. Wall push ups. Wall slides with large ball, 3s/10reps. Stationary bike alt forward and retro x5mins slow pace(not included in direct time). Total minutes of Exercise: 50mins direct Manual Therapy: NA HOME EXERCISE PROGRAM: Continue HEP. Added isometric hip add, hook-lying LE lifts/hip flexion, red theraband for bilateral shoulder ER and UE diagonals 2 directions. - Charges Total Direct Minutes: 50mins Total Treatment Time: 55mins Procedures billed for this date of service:: EX3 Assessment: Patient progressing with strengthening exercise and with daily activities at home. Patient Education: Body/Joint mechanics, Home Exercise Program, Home Safety, Activity Modification Patient demonstrates compliance with HEP?: Yes Short Term Goals Goal #1: Patient is free of cervical collar 4 hrs / day. Goal to be met by: 10/30/16 Progress towards Goal:: Met Goal #2: Right UE strength 4+/5 throughout Goal to be met by: 10/30/16 Progress towards Goal:: Progressing Goal #3: CROM WFLs in all planes w/o increased pain. Goal to be met by: 10/30/16 Progress towards Goal:: Progressing Goal #4: Independent with beginning HEP Goal to be met by: 10/30/16 (100%) Progress towards Goal:: Met Associate Relations Specialist Goals Goal #1: BUE strength 5/5 Goal to be met by: 11/20/16 Progress towards goal: Progressing Goal #2: Patient is free of cervical collar use. Goal to be met by: 11/20/16 (80%) Progress towards goal: Progressing Goal #3: Only minimal discomfort by end of day from normal activities. Goal to be met by: 11/20/16 (60%) Progress towards goal: Progressing Goal #4: Independent with HEP for DC. Goal to be met by: 11/20/16 Progress towards goal: Progressing Plan PLAN OF CARE EXPIRES ON:: 11/20/16 ORDER # VISITS AND/OR THROUGH DATE: 11/20/2016 PLAN: Continue Plan of Care (Continue progression of strengthening activity to return patient to PLOF.)
== END 2016-11-10 ==
PROVIDERS: ATTEND Internal Medicine
DX: S12.500A Unspecified displaced fracture of sixth cervical vertebra, initial encounter for closed fracture (principal)

== ENCOUNTER 2016-11-20 08:15 | Outpatient (RCR) ==
--- NOTE | 2016-11-11 09:57 | RS.OPPTDN ---
Subjective Date of Note: 11/11/16 Visit #: 14 Date of Evaluation: 10/12/16 Payer Source: MEDICARE Treatment Diagnosis: Neck pain and weakness Current Subjective/complaints:: Patient reports he is using right UE more. states she has notices patient is able to reach overhead better and is doing better with HEP. *Precautions: No lifting > 5 lbs Pain Assessment - Pain Description Pain Location: Entire spine Pain Description: Aching increases in the day and relieved by rest. Current Pain Intensity: mild Interventions - Exercise/Activities/Manual Therapy Exercises/Activities: [id number]. Assisted stretching of bilateral hamstrings, SKTC , and gentle trunk rotation. PROM to the right shoulder all directions. Red theraband for right shoulder ext, chest press, IR and ER. Also UE diagonals. In hook-lying, isometric hip add, isometric hip flexion, alt hip flexion 4#. Increased to 6# wand for overhead flexion with alt hip flexion 4# to each LE, 2s /10reps. Red theraband for hip abd and add with knee in full extension, 2s/ 10reps each. SLR. Isometric hip abduction and trunk rotation with ball. Elliptical machine, slow pace, 2s/2 1/2mins. Multi-gym station for scap retraction 20# 3s/10reps and single UE forward press 5# 2s/10reps each side. Serratus punch on right 5#, 2s/10reps. Wall push ups. Wall slides with large ball, 2s/10reps. Forward lean on ball with alt UE lift and then alt LE extension. Leg press 60#, 25reps. Stationary bike alt forward and retro x7mins slow pace(not included in direct time). Total minutes of Exercise: 50mins Manual Therapy: NA HOME EXERCISE PROGRAM: Continue HEP. Added isometric hip add, hook-lying LE lifts/hip flexion, red theraband for bilateral shoulder ER and UE diagonals 2 directions. - Charges Total Direct Minutes: 50mins Total Treatment Time: 57mins Procedures billed for this date of service:: EX3 Assessment: Patient progressing with strengthening exercise. He is increasing functional activities at home. Patient Education: Home Exercise Program Patient demonstrates compliance with HEP?: Yes Short Term Goals Goal #1: Patient is free of cervical collar 4 hrs / day. Goal to be met by: 10/30/16 Progress towards Goal:: Met Goal #2: Right UE strength 4+/5 throughout Goal to be met by: 10/30/16 (60%) Progress towards Goal:: Progressing Goal #3: CROM WFLs in all planes w/o increased pain. Goal to be met by: 10/30/16 (70%) Progress towards Goal:: Progressing Goal #4: Independent with beginning HEP Goal to be met by: 10/30/16 (100%) Progress towards Goal:: Met Block Hand Goals Goal #1: BUE strength 5/5 Goal to be met by: 11/20/16 Progress towards goal: Progressing Goal #2: Patient is free of cervical collar use. Goal to be met by: 11/20/16 (80%) Progress towards goal: Progressing Goal #3: Only minimal discomfort by end of day from normal activities. Goal to be met by: 11/20/16 (60%) Progress towards goal: Progressing Goal #4: Independent with HEP for DC. Goal to be met by: 11/20/16 Progress towards goal: Progressing Plan PLAN OF CARE EXPIRES ON:: 11/20/16 ORDER # VISITS AND/OR THROUGH DATE: 11/20/2016 PLAN: Continue Plan of Care
--- NOTE | 2016-11-13 10:13 | RS.OPPTDN ---
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 Reports he continues to have discomfort in the afternoon and has to rest. *Precautions: No lifting > 5 lbs Pain Assessment - Pain Description Pain Location: Entire spine Pain Description: Aching increases in the day and relieved by rest. Current Pain Intensity: mild Interventions - Exercise/Activities/Manual Therapy Exercises/Activities: [id number]. Assisted stretching of bilateral hamstrings, SKTC , and gentle trunk rotation. PROM to the right shoulder all directions. In hook- lying, isometric hip add, isometric hip flexion, alt hip flexion 4# to each ankle. 6# wand for overhead flexion with alt hip flexion 4# to each LE, 2s/ 10reps. Increased to green theraband for hip abd and add with knee in full extension, 2s/10reps each. SLR. Isometric hip abduction and trunk rotation increased to 8# ball. Elliptical machine, slow pace, 2s/2 1/2mins. Multi-gym station for scap retraction 20# 3s/10reps and single UE forward press 5# increased to 3s/10reps each side. Standing hip extension cable yamila 5#, 3s/ 10reps each. Overhead large ball on wall with 1 1/2# cuff weight each arm. Wall push ups. Wall slides with large ball, 2s/10reps. Forward lean on ball with alt UE lift and then alt LE extension. Leg press 60#, 25reps. Stationary bike alt forward and retro x6mins slow pace(not included in direct time). Total minutes of Exercise: 45mins/51mins Manual Therapy: NA HOME EXERCISE PROGRAM: Continue HEP. Added isometric hip add, hook-lying LE lifts/hip flexion, red theraband for bilateral shoulder ER and UE diagonals 2 directions. 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 Patient Education: Home Exercise Program Patient demonstrates compliance with HEP?: Yes Short Term Goals Goal #1: Patient is free of cervical collar 4 hrs / day. Goal to be met by: 10/30/16 Progress towards Goal:: Met Goal #2: Right UE strength 4+/5 throughout Goal to be met by: 10/30/16 (60%) Progress towards Goal:: Progressing Goal #3: CROM WFLs in all planes w/o increased pain. Goal to be met by: 10/30/16 (70%) Progress towards Goal:: Progressing Goal #4: Independent with beginning HEP Goal to be met by: 10/30/16 (100%) Progress towards Goal:: Met [employer] [place] Goals Goal #1: BUE strength 5/5 Goal to be met by: 11/20/16 Progress towards goal: Progressing Goal #2: Patient is free of cervical collar use. Goal to be met by: 11/20/16 (80%) Progress towards goal: Progressing Goal #3: Only minimal discomfort by end of day from normal activities. Goal to be met by: 11/20/16 (60%) Progress towards goal: Progressing Goal #4: Independent with HEP for DC. Goal to be met by: 11/20/16 Progress towards goal: Progressing Plan PLAN OF CARE EXPIRES ON:: 11/20/16 ORDER # VISITS AND/OR THROUGH DATE: 11/20/2016 PLAN: Continue Plan of Care (Continue next week progressing strengthening to increase functional activity level.)
--- NOTE | 2016-11-16 09:51 | RS.OPPTDN ---
Subjective Date of Note: 11/16/16 Visit #: 16 Date of Evaluation: 10/12/16 Payer Source: MEDICARE Treatment Diagnosis: Neck pain and weakness Current Subjective/complaints:: Patient reports he is doing more each day. He continues to need to rest in the afternoon due to fatigue. *Precautions: No lifting > 5 lbs Pain Assessment - Pain Description Pain Location: Entire spine Pain Description: Aching increases in the day and relieved by rest. Current Pain Intensity: mild Interventions - Exercise/Activities/Manual Therapy Exercises/Activities: [id number]. Assisted stretching of bilateral hamstrings, SKTC , and gentle trunk rotation. PROM to the right shoulder all directions. In hook- lying, isometric hip add, isometric hip flexion, alt hip flexion increased to 5 # to each ankle. 6# wand for overhead flexion with alt hip flexion 5# to each LE , 2s/10reps. Increased to green theraband for hip abd and add in hook-lying 2s/ 10reps each. SLR. Isometric hip abduction and trunk rotation with 6# ball. Elliptical machine, slow pace, 2s/2 1/2mins. Multi-gym station for scap retraction 20# 3s/10reps and single UE forward press 5# increased to 3s/10reps each side. Overhead large ball on wall. Wall push ups. Wall slides with large ball, 2s/10reps. Leg press 60#, 25reps. Stationary bike alt forward and retro x6mins slow pace(not included in direct time). Total minutes of Exercise: 45mins/50mins Manual Therapy: NA HOME EXERCISE PROGRAM: Continue HEP. Added isometric hip add, hook-lying LE lifts/hip flexion, red theraband for bilateral shoulder ER and UE diagonals 2 directions. - Charges Total Direct Minutes: 45mins Total Treatment Time: 50mins Procedures billed for this date of service:: EX3 Assessment: Patient progressing with strenthening and with functional activity level. Patient Education: Home Exercise Program Patient demonstrates compliance with HEP?: Yes Short Term Goals Goal #1: Patient is free of cervical collar 4 hrs / day. Goal to be met by: 10/30/16 Progress towards Goal:: Met Goal #2: Right UE strength 4+/5 throughout Goal to be met by: 10/30/16 (60%) Progress towards Goal:: Progressing Goal #3: CROM WFLs in all planes w/o increased pain. Goal to be met by: 10/30/16 (70%) Progress towards Goal:: Progressing Goal #4: Independent with beginning HEP Goal to be met by: 10/30/16 (100%) Progress towards Goal:: Met Snf Goals Goal #1: BUE strength 5/5 Goal to be met by: 11/20/16 Progress towards goal: Progressing Goal #2: Patient is free of cervical collar use. Goal to be met by: 11/20/16 (80%) Progress towards goal: Progressing Goal #3: Only minimal discomfort by end of day from normal activities. Goal to be met by: 11/20/16 (60%) Progress towards goal: Progressing Goal #4: Independent with HEP for DC. Goal to be met by: 11/20/16 Progress towards goal: Progressing Plan PLAN OF CARE EXPIRES ON:: 11/20/16 ORDER # VISITS AND/OR THROUGH DATE: 11/20/2016 PLAN: Continue Plan of Care
--- NOTE | 2016-11-18 12:56 | RS.OPPTDN ---
Subjective Date of Note: 11/18/16 Visit #: 17 Date of Evaluation: 10/12/16 Payer Source: MEDICARE Treatment Diagnosis: Neck pain and weakness Current Subjective/complaints:: Patient reports he is doing better each day. Patients states she is concerned about weakness of right UE and whether or not patient should continue therapy. *Precautions: No lifting > 5 lbs Pain Assessment - Pain Description Pain Location: Entire spine Pain Description: Aching increases in the day and relieved by rest. Current Pain Intensity: mild Interventions - Exercise/Activities/Manual Therapy Exercises/Activities: [id number]. Assisted stretching of bilateral hamstrings, SKTC , and gentle trunk rotation. PROM to the right shoulder all directions. In hook- lying, isometric hip add, isometric hip flexion, alt hip flexion with 5# to each ankle. 6# wand for overhead flexion with alt hip flexion 5# to each LE, 2s/ 10reps. Increased to green theraband for hip abd and add in hook-lying 2s/ 10reps each. SLR. Isometric hip abduction and trunk rotation with 7# ball. Elliptical machine, slow pace, increased to 2s/3mins. Multi-gym station for scap retraction 20# 3s/10reps and 1s/10reps of 30#, and single UE forward press 5# increased to 3s/10reps each side. Hip extension 10#, 2s/10reps each. Overhead ball on wall, added 2# to each wrist. Wall push ups. Stationary bike alt forward and retro x6mins slow pace(not included in direct time). Total minutes of Exercise: 45mins Manual Therapy: NA HOME EXERCISE PROGRAM: Continue HEP. Added isometric hip add, hook-lying LE lifts/hip flexion, red theraband for bilateral shoulder ER and UE diagonals 2 directions. - Charges Total Direct Minutes: 45mins Total Treatment Time: 51mins Procedures billed for this date of service:: EX3 Assessment: Patient continues to progress with strengthening and reports increase in functional activities. Patient Education: Body/Joint mechanics, Home Exercise Program, Home Safety Comments: Discussed patient increasing his pace with walking and using spirometer. Patient demonstrates compliance with HEP?: Yes Short Term Goals Goal #1: Patient is free of cervical collar 4 hrs / day. Goal to be met by: 10/30/16 Progress towards Goal:: Met Goal #2: Right UE strength 4+/5 throughout Goal to be met by: 10/30/16 (60%) Progress towards Goal:: Progressing Goal #3: CROM WFLs in all planes w/o increased pain. Goal to be met by: 10/30/16 (100%) Progress towards Goal:: Met Goal #4: Independent with beginning HEP Goal to be met by: 10/30/16 (100%) Progress towards Goal:: Met [facility] Goals Goal #1: BUE strength 5/5 Goal to be met by: 11/20/16 Progress towards goal: Progressing Goal #2: Patient is free of cervical collar use. Goal to be met by: 11/20/16 (100%) Progress towards goal: Met Goal #3: Only minimal discomfort by end of day from normal activities. Goal to be met by: 11/20/16 (60%) Progress towards goal: Progressing Goal #4: Independent with HEP for DC. Goal to be met by: 11/20/16 Progress towards goal: Progressing Plan PLAN OF CARE EXPIRES ON:: 11/20/16 ORDER # VISITS AND/OR THROUGH DATE: 11/20/2016 PLAN: Continue Plan of Care
--- NOTE | 2016-11-20 14:03 | RS.OPPTDN ---
Subjective Date of Note: 11/20/16 Visit #: 18 Date of Evaluation: 10/12/16 Payer Source: MEDICARE Treatment Diagnosis: Neck pain and weakness Current Subjective/complaints:: Patient reports he feels he has progressed. He is doing most light to moderate daily activities at home and on farm. States he will continue HEP as instructed. *Precautions: No lifting > 5 lbs Pain Assessment - Pain Description Pain Location: Entire spine Pain Description: Aching increases in the day and relieved by rest. Current Pain Intensity: no pain at rest Interventions - Exercise/Activities/Manual Therapy Exercises/Activities: [id number]. Assisted stretching of bilateral hamstrings, SKTC , and gentle trunk rotation. PROM to the right shoulder all directions. In hook- lying, isometric hip add, isometric hip flexion, alt hip flexion with 5# to each ankle. 6# wand for overhead flexion with alt hip flexion 5# to each LE, 2s/ 10reps. Red theraband for hip abd and add with knees extended 2s/10reps each. SLR. Isometric hip abduction and trunk rotation with 7# ball. Red theraband for UE pulldowns. Elliptical machine, slow pace, 2s/3mins. Multi-gym station for scap retraction 20# 3s/10reps and 1s/10reps of 30#, and single UE forward press 5# increased to 3s/10reps each side. Hip extension 10#, 2s/10reps each. Overhead ball on wall, added 2# to each wrist. Wall push ups. Leaning into ball on wall while performing alt UE/LE extension. Stationary bike alt forward and retro x6mins slow pace(not included in direct time). Total minutes of Exercise: 50mins/56mins Manual Therapy: NA HOME EXERCISE PROGRAM: Continue HEP. Added isometric hip add, hook-lying LE lifts/hip flexion, red theraband for bilateral shoulder ER and UE diagonals 2 directions. - Objective Findings Observations,measurements,etc.: Patient FOM score with Neck Disability Index improved to 8/50 or 16% deficit. - Charges Total Direct Minutes: 50mins Total Treatment Time: 56mins Procedures billed for this date of service:: EX3 Assessment: Patient has progressed well with exercise and ability to perform functional daily activities at home and on farm. He has met 5 of 8 treatment goals and is independent with HEP. Patient Education: Home Exercise Program, Home Safety, Education of Plan of Care Comments: Finalized all patient education of dx, body mechanics, posture, and HEP. Patient demonstrates compliance with HEP?: Yes Short Term Goals Goal #1: Patient is free of cervical collar 4 hrs / day. Goal to be met by: 10/30/16 Progress towards Goal:: Met Goal #2: Right UE strength 4+/5 throughout Goal to be met by: 10/30/16 (80%) Progress towards Goal:: Progressing Comments:: Right UE 4 to 4+/5 MMT Goal #3: CROM WFLs in all planes w/o increased pain. Goal to be met by: 10/30/16 (100%) Progress towards Goal:: Met Goal #4: Independent with beginning HEP Goal to be met by: 10/30/16 (100%) Progress towards Goal:: Met Departmental Secretary Goals Goal #1: BUE strength 5/5 Goal to be met by: 11/20/16 Progress towards goal: Progressing Goal #2: Patient is free of cervical collar use. Goal to be met by: 11/20/16 (100%) Progress towards goal: Met Goal #3: Only minimal discomfort by end of day from normal activities. Goal to be met by: 11/20/16 (60%) Progress towards goal: Progressing Goal #4: Independent with HEP for DC. Goal to be met by: 11/20/16 (100%) Progress towards goal: Met Plan PLAN OF CARE EXPIRES ON:: 11/20/16 ORDER # VISITS AND/OR THROUGH DATE: 11/20/2016 PLAN: Plan for Discharge (Discharge with HEP.)
--- NOTE | 2016-12-10 16:25 | RS.OPPTDC ---
Date of Discharge: 11/20/16 Date of Evaluation: 10/12/16 Number of Visits: 18 Treatment Diagnosis: Neck pain and weakness Current Complaints/Gains: Patient reports increased light activities at home. States he only wears the cervical collar while driving. He is driving short distances. Feels his neck motion is good enough to drive short distances, but not long distances. 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 Pain Assessment - Pain Description Pain Location: Entire spine Pain Description: Aching increases in the day and relieved by rest. Current Pain Intensity: no pain at rest Functional Outcome Measure Neck Disability Index: 8 (16%) - G Codes & Severity Modifier G Codes & Modifier: Carrying and Moving. Goal - CI. DC - CI Source of G Code score: Neck Disability Index Interventions - Exercise/Activities/Manual Therapy Exercises/Activities: NA Manual Therapy: NA HOME EXERCISE PROGRAM: NA - Charges Total Direct Minutes: NA Total Treatment Time: NA Procedures billed for this date of service:: NA Assessment Assessment: Good progress with PT and Independent with HEP. Short Term Goals Goal #1: Patient is free of cervical collar 4 hrs / day. Goal to be met by: 10/30/16 Progress towards Goal:: Met Goal #2: Right UE strength 4+/5 throughout Goal to be met by: 10/30/16 (80%) Progress towards Goal:: Progressing Goal #3: CROM WFLs in all planes w/o increased pain. Goal to be met by: 10/30/16 (100%) Progress towards Goal:: Met Goal #4: Independent with beginning HEP Goal to be met by: 10/30/16 (100%) Progress towards Goal:: Met Behavioral Scientist Goals Goal #1: BUE strength 5/5 Goal to be met by: 11/20/16 Progress towards goal: Progressing Goal #2: Patient is free of cervical collar use. Goal to be met by: 11/20/16 (100%) Progress towards goal: Met Goal #3: Only minimal discomfort by end of day from normal activities. Goal to be met by: 11/20/16 (60%) Progress towards goal: Progressing Goal #4: Independent with HEP for DC. Goal to be met by: 11/20/16 (100%) Progress towards goal: Met Plan Reason for Discharge:: No Further Skilled Therapy Indicated
== END 2016-12-08 ==
PROVIDERS: ATTEND Internal Medicine
DX: S12.500A Unspecified displaced fracture of sixth cervical vertebra, initial encounter for closed fracture (principal); M95.8 Other specified acquired deformities of musculoskeletal system; M54.2 Cervicalgia; R53.1 Weakness

== ENCOUNTER 2018-04-06 13:15 | Outpatient (POV) | END 2018-04-06 17:00 | LOC: OUTPT 13:15 | PROVIDERS: ATTEND Otolaryngology | DX: H91.90 Unspecified hearing loss, unspecified ear (principal) ==